=== PATIENT | male | born 1960 | race Caucasian/White ===

== ENCOUNTER 2020-11-01 14:52 | Emergency (ER) | payer OTHER ==
[~2020-11-01] VITALS: Ht 182.9 cm; Wt 99.8 kg
[2020-11-01 15:23] LABS: ABSOLUTE NEUTROPHILS 8.5 thou/uL (1.4-8.2); BASOPHILS 0.8 % (0.0-2.0); EOSINOPHILS 0.5 % (0.0-3.0); HEMATOCRIT 44.4 % (42.0-52.0); HEMOGLOBIN 14.6 gm/dL (14.0-18.0); LYMPHOCYTES 5.6 % (24.0-44.0); MCH 29.8 pg (26.0-34.0); MCHC 32.9 g/dL (28.0-37.0); MCV 90.6 fL (80.0-100.0); MONOCYTES 5.8 % (1.0-8.0); PLATELET COUNT 296 thou/uL (150-400); POLYS 87.3 % (36.0-66.0); RBC 4.91 mil/uL (4.50-6.00); RDW 13.6 % (10.5-14.5); WBC 9.7 thou/uL (4.0-11.0)
[2020-11-01 15:29] LABS: CALCIUM 10.1 mg/dL (8.5-10.1); CREATININE 1.1 mg/dL (0.7-1.3); POTASSIUM 3.7 mmol/L (3.5-5.1)
[2020-11-01 15:35] LABS: ALBUMIN 4.1 g/dL (3.4-5.0); TOTAL PROTEIN 8.5 g/dL (6.4-8.2)
[2020-11-01 16:24] LABS: URINE BILIRUBIN NEGATIVE (Negative); URINE BLOOD 2+ (Negative); URINE CLARITY CLEAR; URINE COLOR YELLOW; URINE GLUCOSE-RANDOM* NEGATIVE (Negative); URINE KETONES NEGATIVE (Negative); URINE LEUKOCYTES-REFLEX NEGATIVE (Negative); URINE NITRITE-REFLEX NEGATIVE (Negative); URINE PROTEIN (DIPSTICK) NEGATIVE (Negative); URINE UROBILINOGEN 0.2 E.U./dl (0.2-1.0)
[2020-11-01 16:31] LABS: BACTERIA-REFLEX None Seen /HPF (None Seen); CASTS None Seen /LPF (None Seen); CRYSTALS None Seen /LPF (None Seen); MUCUS 0-3 Light strn/LPF (None Seen); SQUAMOUS 0-3 Few /LPF (0-3); URINE RBC 3-10 Few /HPF (0-2); URINE WBC-REFLEX 0-5 Rare /HPF (0-5)
[2020-11-01 17:05] VITALS: BP 155/101
== END 2020-11-01 17:05 | disposition home or self-care (01) ==
LOC: ER 14:52
PROVIDERS: Emergency Medicine
DX: B34.9 Viral infection, unspecified (principal); K43.9 Ventral hernia without obstruction or gangrene; N28.1 Cyst of kidney, acquired; Z20.822 Contact with and (suspected) exposure to COVID-19